=== PATIENT | male | born 1980 | race Caucasian/White ===

== ENCOUNTER → 2017-11-09 11:03 | Outpatient (CLI) | payer OTHER, SELFPAY | PROVIDERS: Visit Provider Ophthalmology | DX: H16.8 Other keratitis (principal) | CPT/HCPCS: 87070; 87205 ==

== ENCOUNTER → 2020-04-26 12:09 | Outpatient (CLI) | payer OTHER, SELFPAY ==
[2020-04-26 12:43] LABS: COVID19 -Nasal RAPID Negative (Negative)
== END ==
PROVIDERS: Visit Provider Physician Assistant
DX: Z20.822 Contact with and (suspected) exposure to COVID-19 (principal)
CPT/HCPCS: 87635

== ENCOUNTER → 2020-08-12 16:00 | Outpatient (CLI) | payer OTHER, SELFPAY ==
[2020-08-12] MEDS: COVID-19 VACC #1, MRNA(MOD) 100 MCG/0.5 ML VIAL IM (16:07)
== END ==
PROVIDERS: Visit Provider Internal Medicine
DX: Z23 Encounter for immunization (principal)
CPT/HCPCS: 0011A; 91301